=== PATIENT | female | born 1960 | race Caucasian/White ===

== ENCOUNTER 2019-09-16 13:46 | Emergency (ER) | payer BC ==
[2019-09-16] MEDS ORDERED: Orphenadrine 100 MG Tab.ER PO ONE (14:21)
[2019-09-16] MEDS ORDERED: Ketorolac 30 MG/ML SDV IM ONE (14:21)
--- NOTE | 2019-09-16 14:47 | EDM.PDOC ---
ED HPI GENERAL MEDICAL PROBLEM - General Chief Complaint: Lower Extremity Injury/Pain Stated Complaint: LEG PAIN Right Leg Pain Score (Numeric/FACES): 9 - Related Data Allergies Allergy/AdvReac Type Severity Reaction Status Date / Time No Known Allergies Allergy Verified 09/16/19 14:01 Home Meds: Home Meds . [No Known Home Meds] 09/16/19 [History] Past Medical History - Past Surgical History GI Surgical History: Reports: Appendectomy Female Surgical History: Reports: Cystectomy, Other (See Below) Social & Family History - Family History Family Medical History: Noncontributory - Tobacco Use Smoking Status *Q: Never Smoker Second Hand Smoke Exposure: No - Caffeine Use Caffeine Use: Reports: Soda - Recreational Drug Use Recreational Drug Use: No Course - Vital Signs Last Recorded V/S: Last Vital Signs Temp 97.3 F 09/16/19 13:55 Pulse 94 09/16/19 13:55 Resp 16 09/16/19 13:55 BP 131/76 09/16/19 13:55 Pulse Ox 99 09/16/19 13:55 Departure - Discharge Information Referrals: PCP,None [Primary Care Provider] -
--- NOTE | 2019-09-16 14:52 | EDM.PDOC ---
<Madisyn Adrian - Last Filed: 09/16/19 16:03> ED HPI GENERAL MEDICAL PROBLEM - General Chief Complaint: Lower Extremity Injury/Pain Stated Complaint: LEG PAIN Time Seen by Provider: 09/16/19 14:30 Source of Information: Reports: Patient History Limitations: Reports: No Limitations - History of Present Illness INITIAL COMMENTS - FREE TEXT/NARRATIVE: Marielena is a 59 year old female who presents to the ED today for evaluation of right leg pain. The pain started two months ago but over the last week has been getting increasingly worse, to the point that she is unable to bear any weight today. She describes the pain as a "constant gopi horse" along with periodic sharp, shooting pains up the medial right leg starting about mid-calf and ending about mid thigh. She reports some lower back pain but states it is mild and does not bother her too much. She has found nothing that brings her any relief. She did try to stretch yesterday and believes that made it worse today - to the point where she felt the need to come to the ED. She was being treated by a chiropractor who was worried about a blood clot in her leg and suggested she be seen in the clinic. She had a Doppler ultrasound to her right leg roughly 3.5 weeks ago that was negative for any clots. She denies any knee or hip pain. She does have some varicose veins and reports that when she gets a new one she usually experiences some pain but nothing compared to the pain she is in now. Onset: Gradual Duration: Week(s):, Constant, Getting Worse Location: Reports: Lower Extremity, Right Quality: Reports: Ache, Dull, Sharp, Other (feels as though her leg is in a constant cramp ) Severity: Moderate Improves with: Reports: None Worsens with: Reports: Other (stretching ), Movement Associated Symptoms: Reports: Other (sharp, stabbing nerve like pain ) Treatments LEAF SORTER: Reports: Acetaminophen, Aspirin, NSAIDS Right Leg Pain Score (Numeric/FACES): 9 - Related Data Allergies Allergy/AdvReac Type Severity Reaction Status Date / Time No Known Allergies Allergy Verified 09/16/19 14:01 Home Meds: Home Meds Acetaminophen/oxyCODONE [Percocet 325-5 MG] 1 each PO Q6H PRN #20 tab 10/29/19 [ Rx] Past Medical History - Past Surgical History GI Surgical History: Reports: Appendectomy Female Surgical History: Reports: Cystectomy, Other (See Below) Social & Family History - Family History Family Medical History: Noncontributory - Tobacco Use Smoking Status *Q: Never Smoker Second Hand Smoke Exposure: No - Caffeine Use Caffeine Use: Reports: Soda - Recreational Drug Use Recreational Drug Use: No Review of Systems - Review of Systems Review Of Systems: See Below Constitutional: Reports: No Symptoms Eyes: Reports: No Symptoms Ears: Reports: No Symptoms Nose: Reports: No Symptoms Mouth/Throat: Reports: No Symptoms Respiratory: Reports: No Symptoms Cardiovascular: Reports: No Symptoms GI/Abdominal: Reports: No Symptoms Genitourinary: Reports: No Symptoms Musculoskeletal: Reports: Leg Pain (medial aspect of right lower leg radiating up into medial aspect of right thigh ), Muscle Pain (right lower leg ), Muscle Stiffness (right lower leg ) Skin: Reports: No Symptoms Neurological: Reports: Difficulty Walking (unable to bear weight on right leg ) , Gait Disturbance (unable to bear weight on right leg ). Denies: Numbness, Paresthesia, Tingling Psychiatric: Reports: No Symptoms ED EXAM, GENERAL - Physical Exam Exam: See Below Exam Limited By: Physical Impairment (limited ROM in right leg due to pain) General Appearance: Alert, WD/WN, Mild Distress Head: Atraumatic, Normocephalic Neck: Normal Inspection, Supple, Non-Tender, Full Range of Motion Respiratory/Chest: No Respiratory Distress, Lungs Clear, Normal Breath Sounds, No Accessory Muscle Use, Chest Non-Tender Cardiovascular: Normal Peripheral Pulses, Regular Rate, Rhythm, No Edema, No Gallop, No JVD, No Murmur, No Rub Peripheral Pulses: 2+: Popliteal (L), Popliteal (R), Posterior Tibial (L), Posterior Tibial (R), Dorsalis Pedis (L), Dorsalis Pedis (R) GI/Abdominal: Normal Bowel Sounds, Soft, Non-Tender, No Organomegaly, No Distention, No Abnormal Bruit, No Mass Back Exam: Normal Inspection, Full Range of Motion. No: Paraspinal Tenderness, Vertebral Tenderness Extremities: No Pedal Edema, Normal Capillary Refill, Praveen's Sign (right leg ) , Leg Pain (right leg, unable to fully relax leg ), Limited Range of Motion ( unable to fully extend right knee, can only dorsiflex right foot with PROM), Other (unable to do straight leg test due to pain). No: Joint Swelling Neurological: Alert, Oriented, CN II-XII Intact, Normal Cognition, No Motor/ Sensory Deficits. No: Normal Reflexes (unable to elicit right achilles and quadriceps due to pt being unable to relax leg) Psychiatric: Normal Affect, Normal Mood Skin Exam: Warm, Dry, Intact, Normal Color, No Rash Lymphatic: No Adenopathy Course - Vital Signs Last Recorded V/S: Last Vital Signs Temp 97.3 F 09/16/19 13:55 Pulse 94 09/16/19 13:55 Resp 16 09/16/19 13:55 BP 131/76 09/16/19 13:55 Pulse Ox 99 09/16/19 13:55 - Orders/Labs/Meds Meds: Medications Discontinued Medications Generic Name Dose Route Start Last Admin Trade Name Freq PRN Reason Stop Dose Admin Hydrocodone Bitart/Acetaminophen 1 tab 09/16/19 15:03 09/16/19 15:11 [place] 325-5 Mg PO 09/16/19 15:04 1 tab ONETIME ONE Administration Ketorolac Tromethamine 30 mg 09/16/19 14:21 09/16/19 14:29 Toradol IM 09/16/19 14:22 30 mg ONETIME ONE Administration Lorazepam 0.5 mg 09/16/19 15:03 09/16/19 15:10 Ativan PO 09/16/19 15:04 0.5 mg ONETIME ONE Administration Orphenadrine Citrate 100 mg 09/16/19 14:21 09/16/19 14:31 Norflex PO 09/16/19 14:22 100 mg ONETIME ONE Administration Departure - Departure Disposition: Home, Self-Care 01 Clinical Impression: Rupture of popliteal cyst Unruptured popliteal cyst Qualifiers: Laterality: right Qualified Code(s): M71.21 - Synovial cyst of popliteal space [Andre], right knee - Discharge Information Prescriptions: Acetaminophen/oxyCODONE [Percocet 325-5 MG] 1 each PO Q6H PRN #20 tab PRN Reason: Pain Instructions: Pain Medicine Instructions, [id number], Andre Cyst Referrals: PCP,None [Primary Care Provider] - Forms: ED Department Discharge Additional Instructions: You were evaluated in the ER today regarding your painful right lower leg. An ultrasound was done of your right leg, but demonstrates no DVT, however it did demonstrate that you had 1 ruptured popliteal cyst, and 1 other unruptured popliteal cyst measuring 2.8 cm. These are commonly referred to as Andre cysts. When one of these cysts rupture, it can be very aggravating to the tissue surrounding it. This is likely was causing most of your pain. You will be given some tablets of pain medication, Gerardo wrap the area, try to elevate the leg as much as possible, and alternate ice and heat for further pain relief. You were given an outpatient order for physical therapy, they should call to schedule you for this, if you do not hear from them in 1-2 days' time, recommend that you follow up with them. Recommend that you establish care with a regular provider for further management. Any family practice provider should be able to provide you with the services. Our [facility] clinic number is [phone], the [place] clinic is [phone]. Please return to the ED at any time if your symptoms should change or worsen. <Luz Thapa - Last Filed: 09/16/19 17:06> ED HPI GENERAL MEDICAL PROBLEM - History of Present Illness INITIAL COMMENTS - FREE TEXT/NARRATIVE: I have read and reviewed the student's HPI and examined the patient and agree with Ester MIRANDA-student. Course - Re-Assessments/Exams Free Text/Narrative Re-Assessment/Exam: 09/16/19 16:22 Patient presents to the ED for evaluation of right leg pain. This is not likely to be due to some sort of radicular neuropathy. However will check an ultrasound for possible DVT, did order 30 mg Toradol and 100 mg PO Norflex for initial management, patient did not get much pain relief for this, did order 0.5 mg Ativan, and one [place] 5/325 tablet to be given. 09/16/19 16:43 Patient was reassessed at bedside, states she still is having quite a bit of pain. The ultrasound report has come back, and demonstrate a popliteal cyst was second adjacent fluid collection possibly representing fluid from a rupture of a main popliteal cyst. The remaining fluid collection measures 2.8 cm. There was no evidence of DVT within the right lower extremity or left common femoral vein. Departure - Departure Time of Disposition: 16:43 Condition: Fair - Discharge Information *PRESCRIPTION DRUG MONITORING PROGRAM REVIEWED*: No *COPY OF PRESCRIPTION DRUG MONITORING REPORT IN PATIENT MILANA: No
[2019-09-16] MEDS ORDERED: Acetaminophen/HYDROcodone 325-5 MG Tab PO ONE (15:03)
[2019-09-16] MEDS ORDERED: LORazepam 0.5 MG Tab PO ONE (15:03)
--- NOTE | 2019-09-16 16:27 | US ---
Right lower extremity deep venous ultrasound: Duplex and color flow imaging was obtained of the right common femoral, proximal greater saphenous, superficial femoral, popliteal, posterior tibial and peroneal veins. Left common femoral vein is also evaluated. Findings: Small fluid collection is seen posterior to the knee measuring 2.8 cm. This is felt compatible with popliteal cyst. Second small fluid collection measuring 5 mm also noted within the posterior popliteal fossa possibly due to fluid that has ruptured from the main popliteal cyst. Normal phasic flow, augmentation and compression is seen. Impression: 1. Popliteal cyst with second adjacent fluid collection possibly representing fluid from rupture of the main popliteal cyst. 2. No evidence of deep venous thrombosis within the right lower extremity or left common femoral vein. Diagnostic code #3
== END 2019-09-16 17:23 | disposition home or self-care (01) ==
LOC: JD.ED 13:46
DX: M66.0 Rupture of popliteal cyst (principal)
CPT/HCPCS: 93971; 96372; 99283; A9270; J1885